=== PATIENT | female | born 1985 | race Caucasian/White ===

== ENCOUNTER 2017-12-02 17:25 | Emergency (ER) | payer SELFPAY ==
[2017-12-02 17:44] VITALS: BP 131/80; PULSE 79; RESP 18; TEMP 98.8; O2SAT 99
--- NOTE | 2017-12-02 18:16 | ED PDOC ---
HPI: Dental Pain/Injury Time Seen by Provider: 12/02/17 18:18 Chief Complaint (Nursing): Dental Pain Chief Complaint (Provider): facial swelling History/Exam Limitations: no limitations Additional Complaint(s): Emily Dillon, a 32 year old female with no significant past medical history, presents to the emergency department with left facial swelling. Patient states she has trouble biting and opening her jaw. No further medical complaints. Past Medical History Reviewed: Historical Data, Nursing Documentation, Vital Signs Vital Signs: Last Vital Signs Temp 98.8 F 12/02/17 17:42 Pulse 79 12/02/17 17:42 Resp 18 12/02/17 17:42 BP 131/80 12/02/17 17:42 Pulse Ox 99 12/02/17 17:42 - Family History Family History: States: Unknown Family Hx - Home Medications Home Medications: Ambulatory Orders Medication Instructions Recorded Methylprednisolone [Medrol Dose 4 mg PO UPON ADM #21 mg 02/11/14 Pack (21 tabs)] Clindamycin [Cleocin] 1 tab PO QID #40 cap 12/02/17 Ibuprofen [Motrin] 600 mg PO Q8 PRN #21 tab 12/02/17 Omeprazole Magnesium [Prilosec Otc] 20 mg PO DAILY #10 tablet. 12/02/17 oxyCODONE/Acetaminophen [Percocet 1 ea PO Q6 PRN #5 tab 12/02/17 5/325 mg Tab] - Allergies Allergies/Adverse Reactions: Allergies Allergy/AdvReac Type Severity Reaction Status Date / Time No Known Allergies Allergy Unverified 12/02/17 17:42 Review of Systems ROS Statement: Except As Marked, All Systems Reviewed And Found Negative ENT: Positive for: Other (facial swelling) Physical Exam - Reviewed Nursing Documentation Reviewed: Yes Vital Signs Reviewed: Yes - Physical Exam Appears: Positive for: Well, Non-toxic, No Acute Distress Head Exam: Positive for: ATRAUMATIC, NORMAL INSPECTION, NORMOCEPHALIC ENT: Positive for: Other (posterior left molar gingival swelling and discharge) Cardiovascular/Chest: Positive for: Regular Rate, Rhythm Respiratory: Positive for: Normal Breath Sounds. Negative for: Respiratory Distress - ECG O2 Sat by Pulse Oximetry: 99 (RA) Pulse Ox Interpretation: Normal Medical Decision Making Medical Decision Making: Time: Initial Impression: dental abscess Initial Plan: --Cleocin 600 mg Scribe Attestation: Documented by Dinah Tipton, acting as a scribe for Gallo Boswell PA-C. Provider Scribe Attestation: All medical record entries made by the Scribe were at my direction and personally dictated by me. I have reviewed the chart and agree that the record accurately reflects my personal performance of the history, physical exam, medical decision making, and the department course for this patient. I have also personally directed, reviewed, and agree with the discharge instructions and disposition. Disposition - Clinical Impression Clinical Impression: Dental abscess - Patient ED Disposition Is Patient to be Admitted: No - Disposition Disposition: Routine/Home Disposition Time: 20:12 Condition: FAIR Prescriptions: Clindamycin [Cleocin] 1 tab PO QID #40 cap Ibuprofen [Motrin] 600 mg PO Q8 PRN #21 tab PRN Reason: Pain, Moderate (4-7) Omeprazole Magnesium [Prilosec Otc] 20 mg PO DAILY #10 tablet. oxyCODONE/Acetaminophen [Percocet 5/325 mg Tab] 1 ea PO Q6 PRN #5 tab PRN Reason: Pain, Severe (8-10) Instructions: Tooth Abscess (DC) Print Language: SOMALI
[2017-12-02] MEDS ORDERED: Clindamycin 600mg/50ml D5W 600 MG/50 ML VIAL IVPB ONE (18:18)
== END 2017-12-02 20:54 | disposition home or self-care (01) ==
LOC: H.ER 17:25
DX: K04.7 Periapical abscess without sinus (principal)
CPT/HCPCS: 81025; 96365; 96375; 99283; J1885

== ENCOUNTER 2018-04-01 10:41 | Emergency (ER) | payer OTHER ==
[2018-04-01 10:48] VITALS: TEMP 97.4; O2SAT 98; BMI 29.2
--- NOTE | 2018-04-01 12:15 | ED PDOC ---
HPI: Abdomen Time Seen by Provider: 04/01/18 11:03 Chief Complaint (Nursing): Abdominal Pain History Per: Patient, Project Buyer (Iraqi #[id number]) Additional Complaint(s): Pt. states yesterday she developed R sided pelvic pain radiating to R lower back associated with vaginal bleeding. Reports she performed a home test on 03/25/2018 which was positive. She has yet to receive any care. LMP: 02/23/2018. Of note, pt. Past Medical History Vital Signs: Last Vital Signs Temp 97.4 F L 04/01/18 10:47 Pulse 67 04/01/18 10:47 Resp 16 04/01/18 10:47 BP 112/60 04/01/18 10:47 Pulse Ox 98 04/01/18 10:47 - Family History Family History: States: Unknown Family Hx - Home Medications Home Medications: Ambulatory Orders Medication Instructions Recorded Methylprednisolone [Medrol Dose 4 mg PO UPON ADM #21 mg 02/11/14 Pack (21 tabs)] Clindamycin [Cleocin] 1 tab PO QID #40 cap 12/02/17 Ibuprofen [Motrin] 600 mg PO Q8 PRN #21 tab 12/02/17 Omeprazole Magnesium [Prilosec Otc] 20 mg PO DAILY #10 tablet. 12/02/17 oxyCODONE/Acetaminophen [Percocet 1 ea PO Q6 PRN #5 tab 12/02/17 5/325 mg Tab] - Allergies Allergies/Adverse Reactions: Allergies Allergy/AdvReac Type Severity Reaction Status Date / Time No Known Allergies Allergy Unverified 12/02/17 17:42 - Laboratory Results Result Diagrams: 04/01/18 12:09 04/01/18 12:09 Urine POC: Negative - ECG O2 Sat by Pulse Oximetry: 98 - Progress ED Course And Treament: Labs, OB US ordered. 1219 Urine preg: negative OB US canceled. [facility] [id number] BH[facility]: negative shredder picker [id number] Pt. informed of results. Reports pain has improved while in ED. Advised to f/u with [facility] regarding elevated LFTs but is to return to ED immediately if symptoms worsen. Disposition - Clinical Impression Clinical Impression: Dysmenorrhea, Elevated LFTs - Patient ED Disposition Is Patient to be Admitted: No - Disposition Referrals: [facility] [Outside] Disposition: Routine/Home Disposition Time: 13:53 Condition: IMPROVED Additional Instructions: FOLLOW UP WITH [facility] FOR FURTHER EVALUATION RETURN TO ED IMMEDIATELY IF SYMPTOMS WORSEN RENAN CASILLAS, thank you for letting us take care of you today. Your provider was Lenny Garcia MD and you were treated for ABD PAIN,BACK PAIN. The emergency medical care you received today was directed at your acute symptoms. If you were prescribed any medication, please fill it and take as directed. It may take several days for your symptoms to resolve. Return to the Emergency Department if your symptoms worsen, do not improve, or if you have any other problems. Please contact your doctor or call one of the physicians/clinics you have been referred to that are listed on the Patient Visit Information form that is included in your discharge packet. Bring any paperwork you were given at discharge with you along with any medications you are taking to your follow up visit. Our treatment cannot replace ongoing medical care by a primary care provider outside of the emergency department. Thank you for allowing the [email or web address] team to be part of your care today. If you had an X-Ray or CT scan: A Radiologist will review the ED reading if any change in treatment is needed we will contact you. If you had a blood, urine, or wound culture: It will take several days for the results, if any change in treatment is needed we will contact you. If you had an STI test: It will take 48 hours for the results. Please call after 1 week if you have not heard back. Instructions: Menstrual Cramps (DC) Forms: [employer] (Iraqi) Print Language: ISRAELI
[2018-04-01 12:45] LABS: BASO % 0.4 % (0.0-2.0); EOS # 0.1 K/uL (0.0-0.7); EOS % 1.4 % (0.0-4.0); HEMOGLOBIN 13.7 g/dL (12.0-16.0); LYMPH % 48.8 % (20.0-40.0); MEAN CELL VOLUME 98.7 fl (81.0-99.0); MEAN CORPUSCULAR HEMOGLOBIN 34.9 pg (27.0-31.0); MEAN CORPUSCULAR HGB CONC 35.4 g/dL (33.0-37.0); MEAN PLATELET VOLUME 9.5 fl (7.2-11.7); MONO # 0.3 K/uL (0.0-0.8); MONO % 4.1 % (0.0-10.0); NEUT # 2.8 K/uL (1.8-7.0); NEUT % 45.3 % (50.0-75.0); NRBC % 0.1 % (0.0-0.0); RBC 3.91 Mil/uL (3.80-5.20); RED CELL DISTRIBUTION WIDTH 12.1 % (11.5-14.5); WHITE BLOOD COUNT 6.2 K/uL (4.8-10.8)
[2018-04-01 12:50] LABS: SQUAMOUS EPITHIAL 9 /hpf (0-5); URINE BACTERIA RARE (<OCC); URINE BILIRUBIN NEGATIVE (NEGATIVE); URINE BLOOD LARGE (NEGATIVE); URINE CLARITY CLOUDY (Clear); URINE COLOR YELLOW (YELLOW); URINE GLUCOSE (UA) NEG (NEGATIVE); URINE LEUKOCYTE ESTERASE NEG Leu/uL (Negative); URINE PROTEIN NEGATIVE (NEGATIVE); URINE UROBILINOGEN 0.2-1.0 mg/dL (0.2-1.0)
[2018-04-01 12:53] LABS: ALBUMIN 4.2 g/dL (3.5-5.0); ALT/SGPT 195 U/L (9-52); AST/SGOT 97 U/L (14-36); BLOOD UREA NITROGEN 10 mg/dl (7-17); GFR NON-AFRICAN AMERICAN > 60
[2018-04-01 14:26] VITALS: BP 110/70; PULSE 72; RESP 18
== END 2018-04-01 14:26 | disposition home or self-care (01) ==
LOC: H.ER 10:41
DX: N94.6 Dysmenorrhea, unspecified (principal); R94.5 Abnormal results of liver function studies

== ENCOUNTER 2018-05-23 18:03 | Emergency (ER) | payer SELFPAY ==
[2018-05-23 18:03] VITALS: BMI 29.2
[2018-05-23 18:22] VITALS: RESP 16; TEMP 98.2; O2SAT 99
--- NOTE | 2018-05-23 19:13 | ED PDOC ---
HPI: Female Pain Time Seen by Provider: 05/23/18 18:44 Chief Complaint (Nursing): Female Genitourinary Chief Complaint (Provider): Female Genitourinary History Per: Patient, Coordinator Of Health Services History/Exam Limitations: no limitations Onset/Duration Of Symptoms: Days (x 2) Current Symptoms Are (Timing): Still Present Quality Of Discomfort: "Pain" Additional Complaint(s): 33 year old 6 week female presents to the ED for evaluation of vaginal spotting for the last two days. Patient reports no other complaints. Denies abdominal pain, fever, chills and genitourinary complaints. PMD: Dr. Perrin Abnormal Vaginal Bleeding: Yes : 4 Para: 3 Past Medical History Reviewed: Historical Data, Nursing Documentation, Vital Signs Vital Signs: Last Vital Signs Temp 98.2 F 05/23/18 18:20 Pulse 80 05/23/18 18:20 Resp 16 05/23/18 18:20 BP 136/76 05/23/18 18:20 Pulse Ox 99 05/23/18 18:20 - Medical History PMH: No Chronic Diseases - Surgical History Surgical History: No Surg Hx - Family History Family History: States: Unknown Family Hx - Home Medications Home Medications: Ambulatory Orders Medication Instructions Recorded Methylprednisolone [Medrol Dose 4 mg PO UPON ADM #21 mg 02/11/14 Pack (21 tabs)] Clindamycin [Cleocin] 1 tab PO QID #40 cap 12/02/17 Ibuprofen [Motrin] 600 mg PO Q8 PRN #21 tab 12/02/17 Omeprazole Magnesium [Prilosec Otc] 20 mg PO DAILY #10 tablet. 12/02/17 oxyCODONE/Acetaminophen [Percocet 1 ea PO Q6 PRN #5 tab 12/02/17 5/325 mg Tab] Pnv No.95/Ferrous Fum/Folic AC 1 each PO DAILY #30 tablet 05/23/18 [ Vitamins Tablet] - Allergies Allergies/Adverse Reactions: Allergies Allergy/AdvReac Type Severity Reaction Status Date / Time No Known Allergies Allergy Unverified 05/23/18 18:20 Review of Systems ROS Statement: Except As Marked, All Systems Reviewed And Found Negative Constitutional: Negative for: Fever, Chills Gastrointestinal: Negative for: Nausea, Vomiting, Abdominal Pain, Diarrhea Genitourinary Female: Positive for: Vaginal Bleeding (spotting). Negative for: Dysuria, Frequency, Incontinence, Hematuria Physical Exam - Reviewed Nursing Documentation Reviewed: Yes Vital Signs Reviewed: Yes - Physical Exam Appears: Positive for: Non-toxic, No Acute Distress Head Exam: Positive for: ATRAUMATIC, NORMAL INSPECTION, NORMOCEPHALIC Skin: Positive for: Normal Color, Warm, Dry Eye Exam: Positive for: EOMI, Normal appearance, PERRL Neck: Positive for: Normal, Painless ROM, Supple Cardiovascular/Chest: Positive for: Regular Rate, Rhythm. Negative for: Murmur Respiratory: Positive for: Normal Breath Sounds. Negative for: Wheezing, Re spiratory Distress Gastrointestinal/Abdominal: Positive for: Normal Exam, Soft. Negative for: Tenderness Back: Positive for: Normal Inspection. Negative for: L CVA Tenderness, R CVA Tenderness Extremity: Positive for: Normal ROM (x 4). Negative for: Deformity Neurologic/Psych: Positive for: Alert, Oriented (x 3). Negative for: Motor/Sensory Deficits - Laboratory Results Result Diagrams: 05/23/18 20:35 05/23/18 20:35 - ECG O2 Sat by Pulse Oximetry: 99 (RA) Pulse Ox Interpretation: Normal Medical Decision Making Medical Decision Makin:44 Impression: vaginal spotting in Initial Plan: --Urine preg --Urine dip --labs --TV ultrasound 21:20 Elevated LFTs again noted. [facility] neurology nurse #[id number]: Pt was informed of elevated LFTs in 03/20 but has not followed up with anyone because her pain was gone. Notified again of abnormal results and need for follow-up. - Scribe Attestation: Documented by Soni Boateng acting as a scribe for Sarah Hinkle MD Provider Scribe Attestation: All medical record entries made by the Scribe were at my direction and personally dictated by me. I have reviewed the chart and agree that the record accurately reflects my personal performance of the history, physical exam, medical decision making, and the department course for this patient. I have also personally directed, reviewed, and agree with the discharge instructions and disposition. Disposition - Clinical Impression Clinical Impression: Threatened , Elevated LFTs - Disposition [facility] Disposition: Routine/Home Disposition Time: 21:15 Condition: STABLE Prescriptions: Pnv No.95/Ferrous Fum/Folic AC [ Vitamins Tablet] 1 each PO DAILY #30 tablet Instructions: Threatened Miscarriage, Liver Function Test Forms: [employer] (Serbian) Print Language: AMERICAN
[2018-05-23 20:46] LABS: BASO # 0.1 K/uL (0.0-0.2); BASO % 1.2 % (0.0-2.0); EOS # 0.1 K/uL (0.0-0.7); EOS % 0.9 % (0.0-4.0); LYMPH # 4.8 K/uL (1.0-4.3); LYMPH % 41.9 % (20.0-40.0); MEAN CELL VOLUME 98.7 fl (81.0-99.0); MEAN CORPUSCULAR HEMOGLOBIN 33.4 pg (27.0-31.0); MEAN CORPUSCULAR HGB CONC 33.9 g/dL (33.0-37.0); MEAN PLATELET VOLUME 9.2 fl (7.2-11.7); MONO # 0.5 K/uL (0.0-0.8); MONO % 4.5 % (0.0-10.0); NEUT # 5.9 K/uL (1.8-7.0); NEUT % 51.5 % (50.0-75.0); RBC 3.89 Mil/uL (3.80-5.20); RED CELL DISTRIBUTION WIDTH 12.7 % (11.5-14.5); WHITE BLOOD COUNT 11.4 K/uL (4.8-10.8)
[2018-05-23 20:50] LABS: PROTHROMBIN TIME 11.4 Seconds (9.8-13.1)
[2018-05-23 20:53] LABS: PARTIAL THROMBOPLASTIN TIME 30.9 Seconds (25.6-37.1)
[2018-05-23 20:58] LABS: ALB/GLOB RATIO 1.2 (1.0-2.1); ALBUMIN 4.5 g/dL (3.5-5.0); ALT/SGPT 202 U/L (9-52); AST/SGOT 104 U/L (14-36); BLOOD UREA NITROGEN 8 mg/dl (7-17); CALCIUM 9.2 mg/dL (8.4-10.2); GFR NON-AFRICAN AMERICAN > 60
[2018-05-23 21:40] VITALS: BP 124/74; PULSE 81
--- NOTE | 2018-05-24 14:10 | US ---
Date of service: 05/23/2018 PROCEDURE: First trimester ultrasound HISTORY: Vaginal spotting COMPARISON: None TECHNIQUE: Standard protocol for this study/examination. FINDINGS: LMP: 03/31/2018 Prior examinations from the current : None TECHNIQUE: Real-time 2D imaging, duplex and color Doppler. FINDINGS: Cardiac activity: Present Rate: 124 BPM Measurements: [place] rump length: 0.37 cm Gestational age based on CRL 6 weeks Gestational age 6 weeks 4 days based on gestational sac measurement 2.07 cm Gestational age derived from LMP: 7 weeks 4 days NINA based on LMP: 01/05/2019 NINA based on biometry: 01/14/2019 Gestational concordance apparent. Yolk sac identified Cervix: No Cervical abnormalities: Negative examination for cervical dilatation or effacement. Closed cervix measuring 4.78 cm Subchorionic hemorrhage: None UTERUS: 6.6 x 5.8 x 9.5 cm. ADNEXA: Right: 1.2 x 3 x 3.5 cm. Multiple subcentimeter follicles. Normal Doppler arterial waveform documented. Left: 1.9 x 2.4 x 3.1 cm. Mass, likely debris laden or hemorrhagic cyst. This measures 1.4 x 1.5 x 2.2 cm. Normal Doppler arterial waveform documented Fluid in the cul-de-sac: None. IMPRESSION: Six weeks 2 days live intrauterine gestation. Likely corpus luteum cyst left adnexa. Concordant findings (preliminary report) provided by [facility].
== END 2018-05-23 21:36 | disposition home or self-care (01) ==
LOC: H.ER 18:03
DX: O20.0 Threatened abortion (principal); R79.89 Other specified abnormal findings of blood chemistry; Z3A.01 Less than 8 weeks gestation of pregnancy

== ENCOUNTER 2018-08-10 22:40 | Emergency (ER) | payer SELFPAY ==
[2018-08-10 23:21] VITALS: BMI 32.2
[2018-08-10] MEDS ORDERED: Bicitra 30 ML UD PO STA (23:21)
[2018-08-11 04:33] VITALS: BP 113/65; PULSE 87
--- NOTE | 2018-08-13 08:14 | OBHP ---
Datetime: 08/10/2018 22:53 IP Adm Impression: , intrauterine IP Chief Complaint Other: abd pain IP Admit Plan: Observation/Evaluation; Discharge home Admit Comment, IP Provider: Param ID# [id number] 34 y/o female at 18.6 wk GA presents to [facility] w/ c/o intermittent, non-radiating RUQ stabbi ng abdominal pain, 8/10 in severity which began at 9PM after eating tacos. She denies chest pain/SOB/ nausea/vomiting/constipation/diarrhea. She denies urinary sx, vaginal bleeding, vaginal fluid loss. S he was last sexually active 5 days ago. OB: [facility] OBhx: 2 term NSVDs, 2 miscarriages Pmhx: denies HomeRx: vitamins Allergies: NKDA SurgHx: denies Famhx: denies Socialhx: denies toxic habits ROS: all systems reviewed and negative except per HPI Physical Exam: Gen: No acute distress, lying in bed comfortably Heart: S1 S2 present, RRR Lungs: normal breathing pattern, clear to auscultation bilaterally Abd: Gravid, soft, RUQ tenderness, no guarding/ no rigidity. Negative nj's Extremities: no swelling/erythema/tenderness Assessment and Plan 34 y/o female IUP at 18.6 wk GA Abdominal pain likely 2/2 gastritis Give patient Bicitra 30mL POx once Patient advised to follow up w/ OB. She has an appointment 08/17/2018. Patient stable for discharge to home w/ instructions to start OTC antacids, TUMs PRN. Case discussed w/ attending, Dr. Bety Shell, pgyi Attending Note: Patient was seen and reviewed with the resident and I agree with the above assessm ent. Pelvic Type - PN: Not Done Extremities - PN: Normal Abdomen - PN: Abnormal Back - PN: Not Done Breast - PN: Not Done Lungs - PN: Normal Heart - PN: Normal Thyroid - PN: Not Done Neurologic - PN: Not Done HEENT - PN: Not Done General - PN: Normal FHR - Baseline A Provider: 150 Comments, ACOG Physical Exam: Gestation - Est Wks by US: 18.6 IP Hx Assessment: The History has been Reviewed and is Current Vital Signs Provider: Reviewed; Within Normal Limits IP Chief Complaint: Other Genitourinary Exam: Not Done DTRs - PN: Not Done
== END 2018-08-11 00:25 | disposition home or self-care (01) ==
LOC: H.EROB2 22:40
DX: O26.92 Pregnancy related conditions, unspecified, second trimester (principal); R10.2 Pelvic and perineal pain; Z3A.18 18 weeks gestation of pregnancy